=== PATIENT | female | born 1980 | race Caucasian/White ===

== ENCOUNTER → 2018-08-10 18:51 | Outpatient (CLI) | payer OTHER, SELFPAY ==
--- NOTE | 2018-08-10 18:55 | DI.MRI.S_ITS ---
PROCEDURE: MR SHOULDER LT WO CON INDICATIONS: LEFT SHOULDER INJURY TECHNIQUE: Noncontrast oblique coronal T2 fast spin echo with fat saturation, oblique sagittal T1 spin echo and T2 fast spin echo with fat saturation, axial T1 spin echo and T2 fast spin echo with fat saturation through the shoulder. COMPARISON: [facility], CR, XR SHOULDER 2+ VIEWS LEFT, 04/27/2018, 7:56. FINDINGS: Image quality: Excellent. Rotator cuff: There is minimal supraspinatus tendinopathy with borderline internal signal change. There is low-grade bursal surface fraying. Infraspinatus teres minor appear intact. Subscapularis tendon appears intact. No atrophy of the rotator cuff musculature. Bones and bursae: No bone marrow contusions or fractures. No acromioclavicular joint degeneration. The acromion demonstrates conventional anatomy, without an os acromiale. Minimal subacromial/subdeltoid bursal fluid. Capsule and soft tissues: In the absence of intra-articular contrast, the labrum and glenohumeral ligaments appear intact. The long head of the biceps tendon demonstrates normal location and morphology. The rotator interval appears normal, without fibrosis. The coracohumeral ligament is normal in thickness. IMPRESSION: Minimal supraspinatus tendinopathy and low-grade bursal surface fraying. Dictated by: Dennis Valerio M.D. on 08/11/2018 at 8:01 Approved by: Dennis Valerio M.D. on 08/11/2018 at 8:07
== END ==
PROVIDERS: PCP Family Medicine; Visit Provider Orthopaedic Surgery
DX: S49.92XA Unspecified injury of left shoulder and upper arm, initial encounter (principal)
CPT/HCPCS: 73221